=== PATIENT | female | born 1970 | race Caucasian/White ===

== ENCOUNTER 2021-12-01 13:57 | Emergency (ER) | payer OTHER ==
[~2021-12-01] VITALS: Ht 162.6 cm; Wt 68.0 kg
[2021-12-01] MEDS ORDERED: PEPCID AC20 MG PO (20:22)
[2021-12-01] MEDS ORDERED: MACRODANTIN100 M1 PO (20:22)
== END 2021-12-01 20:29 | disposition home or self-care (01) ==
LOC: ER 13:57
DX: N39.0 Urinary tract infection, site not specified (principal); Z91.013 Allergy to seafood; Z88.2 Allergy status to sulfonamides

== ENCOUNTER → 2022-04-21 | Outpatient (CLI) | payer OTHER ==
[~2022-04-21] MED LIST: MACRODANTIN100 M1 PO; PEPCID AC20 MG PO
== END | disposition home or self-care (01) ==
LOC: SONOGRAMA 11:50
PROVIDERS: ATTEND Pathology Anatomic Pathology & Clinical Pathology
DX: D34 Benign neoplasm of thyroid gland (principal); E04.9 Nontoxic goiter, unspecified; E03.9 Hypothyroidism, unspecified

== ENCOUNTER 2022-05-06 10:00 | Outpatient (CLI) | payer OTHER | END 2022-05-06 10:12 | disposition home or self-care (01) | LOC: SONOGRAMA 10:00 | PROVIDERS: ATTEND Internal Medicine Infectious Disease | DX: K76.0 Fatty (change of) liver, not elsewhere classified (principal); R93.5 Abnormal findings on diagnostic imaging of other abdominal regions, including retroperitoneum ==

== ENCOUNTER 2022-05-25 15:09 | Outpatient (CLI) | payer OTHER | END 2022-05-25 15:17 | disposition home or self-care (01) | LOC: RAD 15:09 | PROVIDERS: ATTEND Internal Medicine Infectious Disease | DX: R10.11 Right upper quadrant pain (principal); M54.59 Other low back pain ==

== ENCOUNTER 2022-06-22 09:57 | Outpatient (CLI) | payer OTHER | END 2022-06-22 10:26 | disposition home or self-care (01) | LOC: TOM 09:57 | PROVIDERS: ATTEND Otolaryngology | DX: R22.1 Localized swelling, mass and lump, neck (principal) ==

== ENCOUNTER 2023-04-04 12:58 | Outpatient (CLI) | payer OTHER | END 2023-04-04 13:06 | disposition home or self-care (01) | LOC: RAD 12:58 | PROVIDERS: ATTEND Internal Medicine Rheumatology | DX: M75.82 Other shoulder lesions, left shoulder (principal) ==

== ENCOUNTER 2024-12-11 14:00 | Outpatient (CLI) | payer OTHER | END 2024-12-11 14:02 | disposition home or self-care (01) | LOC: SONOGRAMA 14:00 | PROVIDERS: ATTEND Internal Medicine | DX: R31.21 Asymptomatic microscopic hematuria (principal); E04.2 Nontoxic multinodular goiter ==